=== PATIENT | male | born 1995 | race Native Hawaiian/Other Pacific Islander ===

== ENCOUNTER 2021-04-02 17:09 | Emergency (ER) | payer OTHER ==
[~2021-04-02] VITALS: Ht 177.8 cm; Wt 63.5 kg
[~2021-04-02 17:09] MED LIST: LAMICTAL100 MG OR; ZARONTIN250 MG OR
[2021-04-02 18:44] VITALS: BP 101/62; TEMP 98.4
== END 2021-04-02 18:44 | disposition home or self-care (01) ==
LOC: ED 17:09
PROC: 0HQGXZZ Repair Left Hand Skin, External Approach (ICD-10-PCS; principal; 2021-04-02)
DX: S61.211A Laceration without foreign body of left index finger without damage to nail, initial encounter (principal); W26.0XXA Contact with knife, initial encounter; Y93.89 Activity, other specified; Y92.89 Other specified places as the place of occurrence of the external cause; Y99.8 Other external cause status
CPT/HCPCS: 90471; 90715; 99283; J2001